=== PATIENT | female | born 1970 | race Hispanic/Latino ===

== ENCOUNTER 2022-03-18 20:13 | Emergency (ER) | payer OTHER ==
[~2022-03-18] VITALS: Ht 175.3 cm; Wt 115.2 kg
[2022-03-18 21:26] VITALS: BP 132/71
[2022-03-18] MEDS ORDERED: FLUORESCEIN SODIUM 1 STRIP STRIP ONE (22:26)
[2022-03-18] MEDS ORDERED: TETRACAINE HCL 0.5% 4 ML OPHTH SOLN ONE (22:26)
[2022-03-18] MEDS ORDERED: FLUORESCEIN SODIUM 1 STRIP STRIP OP ONE (22:30)
[2022-03-18] MEDS ORDERED: TETRACAINE HCL 0.5% 4 ML OPHTH SOLN OP ONE (22:30)
[2022-03-18] MEDS ORDERED: ACET-2079 PO (22:45)
[2022-03-18] MEDS ORDERED: BACI30OI6 TP (22:45)
[2022-03-18] MEDS ORDERED: DIPH25 PO (22:45)
[2022-03-18] MEDS ORDERED: DIPHENHYDRAMINE HCL 25 MG CAPSULE ONE (22:48)
[2022-03-18] MEDS ORDERED: ACETAMINOPHEN WITH CODEINE 1 TAB TAB ONE (22:49)
[2022-03-18] MEDS ORDERED: DIPHENHYDRAMINE HCL 25 MG CAPSULE PO ONE (23:00)
[2022-03-18] MEDS ORDERED: ACETAMINOPHEN WITH CODEINE 1 TAB TAB PO ONE (23:00)
== END 2022-03-18 23:02 | disposition home or self-care (01) ==
LOC: EDH 20:13
DX: B02.9 Zoster without complications (principal); E11.9 Type 2 diabetes mellitus without complications; I10 Essential (primary) hypertension; Z88.8 Allergy status to other drugs, medicaments and biological substances; Z79.899 Other long term (current) drug therapy
CPT/HCPCS: 99283; Q0163

== ENCOUNTER 2023-10-29 19:41 | Observation (INO) | payer OTHER ==
[~2023-10-29] VITALS: Ht 175.3 cm; Wt 112.5 kg
[~2023-10-29 19:41] MED LIST: ACET-2079 PO; BACI30OI6 TP; DIPH-1242 PO
[2023-10-29] MEDS ORDERED: IOHEXOL 350 MG/ML 100ML INFUS..BTL IV ONE (20:09)
[2023-10-29] MEDS ORDERED: DiphenhydrAMINE HCL 50 MG/ML VIAL ONE (20:10)
[2023-10-29] MEDS ORDERED: SOLU-MEDROL 125MG VIAL ONE (20:10)
[2023-10-29 20:19] LABS: BASOPHILS # (AUTO) 0.03 K/uL (0.00-0.20); BASOPHILS % (AUTO) 0.4 % (0.0-5.0); EOSINOPHILS # (AUTO) 0.08 K/uL (0.00-0.70); EOSINOPHILS % (AUTO) 1.1 % (0.0-8.0); HEMATOCRIT 46.8 % (36-48); IMMATURE GRANULOCYTE ABSOLUTE 0.03 K/uL (0-1); LYMPHOCYTES # (AUTO) 1.7 K/uL (1.0-4.8); LYMPHOCYTES % (AUTO) 22.3 % (21.0-51.0); MEAN CORPUSCULAR HEMOGLOBIN 30.2 pg (27.0-33.0); MEAN CORPUSCULAR HGB CONC 33.5 g/dL (32.0-36.0); MONOCYTES # (AUTO) 0.4 K/uL (0.1-1.0); MONOCYTES % (AUTO) 5.5 % (3.0-13.0); NEUTROPHILS # (AUTO) 5.3 K/uL (1.8-7.7); NEUTROPHILS % (AUTO) 70.3 % (40.0-77.0); PLATELET COUNT (AUTO) 288 K/uL (130-400); RED CELL DISTRIBUTION WIDTH 12.5 % (11.0-15.5); WHITE BLOOD COUNT (AUTO) 7.5 K/uL (4.8-10.8)
[2023-10-29] MEDS ORDERED: 0.9%NACL 1000ML 1,000 ML IV ONE (20:30)
[2023-10-29 20:34] LABS: CREATININE 0.8 mg/dL (0.5-1.5); POTASSIUM 3.6 mmol/L (3.5-5.1)
[2023-10-29 20:35] LABS: ALBUMIN 3.8 g/dL (3.5-5.0); BILIRUBIN,TOTAL 0.7 mg/dL (0.2-1.0); TOTAL PROTEIN, SERUM 8.3 g/dL (6.0-8.3)
[2023-10-29 20:37] LABS: INR 0.94 (0.85-1.15); PROTHROMBIN TIME 10.9 SEC (9.6-11.6)
[2023-10-29 20:38] LABS: PARTIAL THROMBOPLASTIN TIME 28.6 SEC (26.3-35.5)
[2023-10-29] MEDS ORDERED: 0.9%NACL 1000ML 1,000 ML IV SCH (22:30)
[2023-10-29] MEDS ORDERED: ONDANSETRON 4MG INJ IV PRN (22:30)
[2023-10-29] MEDS ORDERED: FAMOTIDINE 20MG VIAL IV SCH (22:33)
[2023-10-30] VITALS: O2SAT 99
[2023-10-30] MEDS: ACETAMINOPHEN 325 MG TAB PO PRN ×2 (01:47→14:43)
[2023-10-30 04:00] VITALS: BP 129/76; PULSE 76; RESP 17
[2023-10-30 05:51] LABS: BASOPHILS # (AUTO) 0.01 K/uL (0.00-0.20); BASOPHILS % (AUTO) 0.1 % (0.0-5.0); HEMATOCRIT 44.9 % (36-48); IMMATURE GRANULOCYTE ABSOLUTE 0.04 K/uL (0-1); LYMPHOCYTES # (AUTO) 0.9 K/uL (1.0-4.8); LYMPHOCYTES % (AUTO) 10.7 % (21.0-51.0); MEAN CORPUSCULAR HEMOGLOBIN 29.9 pg (27.0-33.0); MEAN CORPUSCULAR HGB CONC 33.9 g/dL (32.0-36.0); MEAN CORPUSCULAR VOLUME 88.4 fL (79-99); MONOCYTES % (AUTO) 0.5 % (3.0-13.0); NEUTROPHILS # (AUTO) 7.5 K/uL (1.8-7.7); NEUTROPHILS % (AUTO) 88.2 % (40.0-77.0); PLATELET COUNT (AUTO) 303 K/uL (130-400); RED BLOOD CELL COUNT(AUTO) 5.08 MIL/uL (4.00-5.50); RED CELL DISTRIBUTION WIDTH 12.4 % (11.0-15.5); WHITE BLOOD COUNT (AUTO) 8.5 K/uL (4.8-10.8)
[2023-10-30 06:09] LABS: ALBUMIN 3.5 g/dL (3.5-5.0); BILIRUBIN,TOTAL 0.6 mg/dL (0.2-1.0); CREATININE 0.9 mg/dL (0.5-1.5); MAGNESIUM 2.2 mg/dL (1.80-2.40); POTASSIUM 3.7 mmol/L (3.5-5.1); TOTAL PROTEIN, SERUM 8.1 g/dL (6.0-8.3)
[2023-10-30 06:17] LABS: HEMOGLOBIN A1C 5.7 % (4.0-6.0)
[2023-10-30 08:00] VITALS: O2SAT 99
[2023-10-30] MEDS ORDERED: FAMOTIDINE 20MG VIAL IV SCH (09:00)
[2023-10-30 10:45] LABS: THYROID STIMULATING HORMONE 0.32 uIU/mL (0.36-3.74)
[2023-10-30] MEDS ORDERED: ASPIRIN 81 MG EC TAB PO ONE (12:30)
[2023-10-30] MEDS ORDERED: ATOR10 PO (12:45)
[2023-10-30 16:00] VITALS: BP 141/72; PULSE 74; RESP 18
[2023-10-30] MEDS ORDERED: AEC81 PO (18:14)
[2023-10-30] MEDS ORDERED: CLOP-31 PO (18:14)
[2023-10-30] MEDS ORDERED: FAMO-136 PO (18:14)
[2023-10-30] MEDS ORDERED: ATORVASTATIN 20 MG TABLET PO SCH (21:00)
[2023-10-31] MEDS ORDERED: ASPIRIN 81 MG EC TAB PO SCH (09:00)
[2023-10-31] MEDS ORDERED: CLOPIDOGREL 75MG TAB PO SCH (09:00)
== END 2023-10-30 18:55 | disposition home or self-care (01) ==
LOC: EDH 19:41 → EDHIP 22:58 → INTOOBSV 22:58 → 3CH 22:59
PROVIDERS: ADMIT Internal Medicine; ATTEND Internal Medicine
DX: E11.65 Type 2 diabetes mellitus with hyperglycemia (principal); E66.01 Morbid (severe) obesity due to excess calories; G43.109 Migraine with aura, not intractable, without status migrainosus; G51.0 Bell's palsy; I63.9 Cerebral infarction, unspecified; R10.32 Left lower quadrant pain; R20.0 Anesthesia of skin; R25.3 Fasciculation; I10 Essential (primary) hypertension; Z68.36 Body mass index [BMI] 36.0-36.9, adult; Z88.8 Allergy status to other drugs, medicaments and biological substances; Z79.899 Other long term (current) drug therapy; Z79.82 Long term (current) use of aspirin
CPT/HCPCS: 96374; 96361; 99285; 84484; 80053 ×2; 85025 ×2; 85610; 85730; 82948 ×2; 36415 ×2; 71045; 70450; 70496; 70498; 93005; 96376; 83036; 84443; 83735; 80061; 84425; 82607; 93306; 93356; 70551; 97161; 97116; 92522; 92610; J1200; J3490 ×2; J7030; J2930; Q9967; G0378 ×9

== ENCOUNTER → 2024-06-18 | Outpatient (CLI) | payer OTHER ==
[~2024-06-18] MED LIST changes: -ACET-2079 PO; +AEC81 PO; +ATOR10 PO; -BACI30OI6 TP; +CLOP-31 PO; -DIPH-1242 PO; +FAMO-136 PO
[2024-06-18 22:27] VITALS: PULSE 72; RESP 18
[2024-06-18 23:00] VITALS: PULSE 68; RESP 18
[2024-06-18 23:30] VITALS: PULSE 60; RESP 18
[2024-06-19] VITALS (11 sets, daily range): PULSE 60–68; RESP 12–20
== END | disposition home or self-care (01) ==
LOC: SLP 20:28
PROVIDERS: ATTEND Internal Medicine Critical Care Medicine
DX: G47.33 Obstructive sleep apnea (adult) (pediatric) (principal)
CPT/HCPCS: 95810

== ENCOUNTER 2025-09-07 18:33 | Emergency (ER) | payer OTHER ==
[~2025-09-07] VITALS: Ht 175.3 cm; Wt 117.9 kg
--- NOTE | 2025-09-07 19:15 | ERN ---
ED Note History of Present Illness Stated Complaint: VISION ISSUES, HTN, HEADACHE Chief Complaint: Stroke Symptoms Time Seen by MD: 19:10 Dictation: PATIENT IS A 55-YEAR-OLD FEMALE HERE WITH HER WITH COMPLAINTS OF HAVING ACUTE ONSET OF BLURRED VISION APPROXIMATE 1 HOUR PRIOR TO ARRIVAL (APPROX 1800). 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 SHE SAID THEN THIS AFTERNOON SHE GOT UP AND SHE HAD TO USE THE RESTROOM WENT TO THE RESTROOM WHEN BACK TO BED WHEN SHE GOT UP AN HOUR AGO IS WHEN SHE NOTICED THAT SHE HAD THE BLURRED VISION SHE ALSO STATES HER BLOOD PRESSURE WAS ELEVATED, SHE STOPPED TAKING HER HCTZ FOUR MONTHS AGO THAT WAS PRESCRIBED TO HER BY HER PRIMARY CARE DOCTOR. PATIENT DOES WEAR CORRECTIVE LENSES. NIH IS 0, ALERT AND ORIENTED X4, SPEECH IS CLEAR. THERE WAS NO HEMIANOPSIA VISUAL HENRY ARE INTACT LAST KNOWN WELL TIME WAS 09:30 THIS MORNING WHEN PATIENT GOT UP TO USE THE RESTROOM. Allergies: Coded Allergies: iodine (Unverified Allergy, Severe, SWELLING OF THE THROAT, 03/18/22) Home Meds Active Scripts Famotidine (Pepcid) 20 Mg Tablet, 20 MG PO DAILY for 30 Days, #30 TAB [facility]23 Clopidogrel Bisulfate (Plavix) 75 Mg Tablet, 75 MG PO DAILY for 21 Days, #21 TAB Prov:FRANCIE SCRUGGS [facility] 10/30/23 Aspirin (ASPIRIN 81 MG ECTAB) 81 Mg Ectab, 81 MG PO DAILY for 30 Days, #30 TAB.EC Prov[facility] 10/30/23 Atorvastatin Calcium (LIPITOR) 20 Mg Tab, 20 MG PO HS for 30 Days, #30 TAB Prov[facility] 10/30/23 Past Medical History Past Medical History: Diabetes-Type II, Hypertension Surgical History: None Social History: Negative History: Not Applicable : 3 Para: 2 Aborts: 1 RN Note Reviewed/Agreed w/PFSH: Yes Review of System Dictation CONSTITUTIONAL: NEGATIVE EXCEPT FOR HPI HEAD/FACE: NEGATIVE EXCEPT FOR HPI EENT: NEGATIVE EXCEPT FOR HPI BLURRED VISION RESPIRATORY: NEGATIVE EXCEPT FOR HPI GASTROINTESTINAL/ABDOMINAL: NEGATIVE EXCEPT FOR HPI GENITOURINARY: NEGATIVE EXCEPT FOR HPI MUSCULOSKELETAL: NEGATIVE EXCEPT FOR HPI INTEGUMENTARY: NEGATIVE EXCEPT FOR HPI NEUROLOGICAL/PSYCH: NEGATIVE EXCEPT FOR HPI HEMATOLOGIC/LYMPHATIC: NEGATIVE EXCEPT FOR HPI ALL SYSTEMS NEGATIVE, EXCEPT NOTED ABOVE. 13 POINT REVIEW OF SYSTEMS ASSESSED AND ALL NEGATIVE EXCEPT FOR ABOVE. Initial Vital Sign VS Vital Signs Date Time Temp Pulse Resp B/P (MAP) Pulse Ox O2 Delivery O2 Flow Rate FiO2 09/07/25 19:03 97.7 79 20 168/101 99 Room Air 09/07/25 19:39 0 21 Physical Exam Dictation VITAL SIGNS REVIEWED GENERAL APPEARANCE: ALERT, ORIENTED X 3, NO ACUTE DISTRESS, WELL DEVELOPED, NOURISHED. HEAD AND FACE: NON-TRAUMATIC. EYES: PERRL, PINK CONJUNCTIVAS, EYELID NO TRAUMA, ANTERIOR CHAMBER WITH ARCUS SENILIS. EOMS INTACT, NO VISUAL FIELD CUTS EARS: PINNAS INTACT AND NO SIGNS OF TRAUMA OR ERYTHEMA EAR CANALS CLEAR AND NO DISCHARGE TM NO ERYTHEMA NOSE: NO DISCHARGE, NO BLEEDING. OROPHARYNX: MOUTH NORMAL, TONGUE PINK, PHARYNX CLEAR,NO ERYTHEMA, TONSILS NO EXUDATES, NO ABSCESSES NOTED, MUCOUS MEMBRANE MOIST NECK: SUPPLE, NON-TENDER, NO THYROMEGALY, NO MASSES, NO JVD, NO BRUITS BREAST:DEFERRED CHEST:NO TENDERNESS, NO CREPITUS, NO PARADOXICAL MOVEMENT, NO RETRACTIONS LUNGS:CLEAR, WELL-VENTILATED, SYMMETRIC, NO RALES, NO WHEEZING, NO RHONCHI, NO STRIDOR, GOOD BREATH SOUNDS BILATERALLY HEART: REGULAR RATE, REGULAR RHYTHM, NO MURMUR, NO GALLOPS VASCULAR: NO PERIPHERAL EDEMA, ABDOMEN: SOFT, POSITIVE BOWEL SOUNDS, NONDISTENDED, NO GUARDING, NONTENDER, NO REBOUND, NO MASSES NO HEPATOMEGALY, NO SPLENOMEGALY, NO MARIE'S SIGN, NO HERNIAS. RECTAL: DEFERRED GENITAL: DEFERRED NEUROLOGICAL: NORMAL SPEECH, MOTOR FUNCTION INTACT, SENSORY FUNCTION INTACT NIH IS 0 MUSCULOSKELETAL: NECK NONTENDER, FULL RANGE OF MOTION, BACK NONTENDER, FULL RANGE OF MOTION, EXTREMITIES: NONTENDER, FULL RANGE OF MOTION SKIN: COLOR PINK, DRY, NO TURGOR, NO RASH, NO LACERATIONS, NO ABRASIONS, NO CONTUSIONS. LYMPHATIC: DEFERRED Results (Laboratory/Radiology) Laboratory/Radiology Laboratory Tests Test 09/07/25 19:15 White Blood Count 7.1 K/uL (4.8-10.8) Red Blood Count 4.95 MIL/uL (4.00-5.50) Hemoglobin 15.0 g/dL (12.0-16.0) Hematocrit 44.4 % (36-48) Mean Corpuscular Volume 89.7 fL (79-99) Mean Corpuscular Hemoglobin 30.3 pg (27.0-33.0) Mean Corpuscular Hemoglobin Concent 33.8 g/dL (32.0-36.0) Red Cell Distribution Width 12.7 % (11.0-15.5) Platelet Count 226 K/uL (130-400) Mean Platelet Volume 11.3 fL (7.5-10.5) H Immature Granulocyte % (Auto) 0.3 % (0-1) Neutrophils (%) (Auto) 61.1 % (40.0-77.0) Lymphocytes (%) (Auto) 29.7 % (21.0-51.0) Monocytes (%) (Auto) 6.5 % (3.0-13.0) Eosinophils (%) (Auto) 2.0 % (0.0-8.0) Basophils (%) (Auto) 0.4 % (0.0-5.0) Neutrophils # (Auto) 4.3 K/uL (1.8-7.7) Lymphocytes # (Auto) 2.1 K/uL (1.0-4.8) Monocytes # (Auto) 0.5 K/uL (0.1-1.0) Eosinophils # (Auto) 0.14 K/uL (0.00-0.70) Basophils # (Auto) 0.03 K/uL (0.00-0.20) Absolute Immature Granulocyte (auto 0.02 K/uL (0-1) Nucleated Red Blood Cells 0.0 % (0.0-0.19) Sodium Level 141 mmol/L (136-145) Potassium Level 3.7 mmol/L (3.5-5.1) Chloride Level 105 mmol/L (101-111) Carbon Dioxide Level 28 mmol/L (21-32) Blood Urea Nitrogen 11 mg/dL (7-18) Creatinine 0.6 mg/dL (0.5-1.0) Glomerular Filtration Rate Calc 106 mL/min (>90) Random Glucose 98 mg/dL (70-105) Total Calcium 8.6 mg/dL (8.5-10.1) Magnesium Level 2.20 mg/dL (1.80-2.40) Troponin I High Sensitivity < 4 ng/L (4-50) L 2000/NO CT REPORT IN PACS. SPOKE WITH ALBERTA AT [facility] AND ASKED FOR AN EXPEDITED READING DUE TO STROKE ALERT. PATIENT REMAINS NEUROLOGICALLY INTACT. : 1970 SEX: F AGE: 55 LOCATION: [facility] ORDER 12 STATUS: REG ER REPORT#: [id number] SERVICE 09 REASON: BLURRED VISION APPROXIMATE 1 HOUR PRIOR TO ARRIVAL. ORDERING PHYSICIAN: BLADIMIR RILEY PROCEDURE: HEAD WO - CT HEAD/BRAIN W/O CONTRAST EXAM: CT Head Without IV contrast. CLINICAL HISTORY: BLURRED VISION APPROXIMATE 1 HOUR PRIOR TO ARRIVAL. TECHNIQUE: Axial computed tomography images of the head/brain without intravenous contrast. COMPARISON: None provided. FINDINGS: BRAIN: No evidence of acute hemorrhage. No mass lesion. No CT evidence for acute territorial infarct. No midline shift or extra-axial collections. VENTRICLES: No hydrocephalus. ORBITS: The orbits are unremarkable. SINUSES AND MASTOIDS: The paranasal sinuses and mastoid air cells are clear. BONES: No fracture. SOFT TISSUES: Unremarkable. IMPRESSION: No acute intracranial abnormality. Recommend evaluation with MRI brain if clinically warranted. /[place] Labs Reviewed?: Yes EKG: (+) NSR EKG Comment: EKG NORMAL SINUS RHYTHM/HEART RATE 74/AXIS NORMAL/NO ECTOPY ED Course ED Course Orders Procedure Category Date Status Time Visual Acuity Test CPOE 09/07/25 Transmitted (Er) 19:10 Ct Head/Brain W/O CT 09/07/25 Resulted Contrast 19:10 Cbc With Differential LAB 09/07/25 Complete 19:10 12 Lead Ekg Tracing- EKG 09/07/25 Complete Technical 19:10 Magnesium LAB 09/07/25 Complete 19:10 Troponin I High LAB 09/07/25 Complete Sensitivity 19:10 Urinalysis Profile LAB 09/07/25 Logged 19:10 Basic Metabolic Panel LAB 09/07/25 Complete 19:10 Lesage Prov. Neuro CONPHYSVC 09/07/25 Transmitted Consult 20:27 Vital Signs Date Time Temp Pulse Resp B/P (MAP) Pulse Ox O2 Delivery O2 Flow Rate FiO2 09/07/25 19:39 98.8 75 18 140/75 99 Room Air* 0 21 09/07/25 19:03 97.7 79 20 168/101 99 Room Air 1957/SPOKE WITH ALBERTA AT [facility] AND REQUESTED AN EXPEDITED CT READ ON STROKE ALERT. 2023/CT RESULTS NEGATIVE WE WILL FOLLOW WITH THE SOC/NEUROLOGIST. 2039/SPOKE WITH DR. SEBASTIAN EASTON/NEUROLOGISTS. HE HAD CT IN HIS FINDINGS. HE IS LEANING MORE TOWARD A MIGRAINE HEADACHE STRONGLY SUGGESTED THAT WE PERFORM CT ANGIOGRAPHY. IF THERE IS NO CHANGES THERE HE SUGGEST TREATED FOR MIGRAINE HEADACHE AND OKAY TO DISCHARGE HER HOME NORMAL FINDINGS CALLED HIM AND HE WOULD RECOMMEND AN MRI AT THAT POINT. 2039/VISUAL ACUITY CHECKED BY RN 20/20 RIGHT 20/20 LEFT 20/20 BOTH CORRECTED SPOKE TO PATIENT AND HER AT LENGTH REGARDING RECOMMENDATIONS TO TRANSFER TO A HIGHER LEVEL OF CARE FOR CT ANGIOGRAM AND POSSIBLE MRI AND NEUROLOGIC MA NAGEMENT. PATIENT STATES HER SYMPTOMS HAVE RESOLVED SHE ONLY HAS A MILD FRONTAL HEADACHE. NIH IS 0 AND VISION IS INTACT WITH CORRECTIVE LENSES. SHE AND HER DO NOT WANT TO BE TRANSFERRED TO A HIGHER LEVEL OF CARE AND AGREED THAT THEY WE WILL BE DISCHARGED AGAINST MEDICAL ADVICE WE WILL RETURNED TO THE HOSPITAL IMMEDIATELY IF ANY ACUTE CHANGES. I ADVISED BOTH IT WITHOUT ADDITIONAL TESTING THAT THE ETIOLOGY FOR VISION CHANGES THIS AFTERNOON COULD NOT BE DISCERNED HOWEVER, THEY BOTH AGREED THEY WANT TO GO HOME. HEART Score Response (Comments) Value History: Low suspicion (0) 0 Age: 45-65yrs (+1) 1 Risk Factors: 1-2 risk factors (+1) 1 Initial Troponin: Normal limit (0) 0 Total 2 Medical Decision Making MDM MDM: DIFFERENTIAL DIAGNOSIS: VISION CHANGES/CVA/ACUTE BLEED/ELECTROLYTE IMBALA NCE/DEHYDRATION/ANXIETY/MIGRAINE HEADACHE ARRHYTHMIA RATIONALE: TESTS CONSIDERED AND ORDERED SECONDARY TO SHARED DECISION MAKING INCLUDE: EKG/LABS/RADIOLOGY PREVIOUS OUTSIDE RECORDS REVIEWED: OLD ER VISITS. RISK OF COMPLICATION AND/OR MORBIDITY OR MORTALITY OF PATIENT MANAGEMENT: NONE MEDICATIONS-PER MEDICATION RECONCILIATION NEED FOR HOSPITALIZATION: PATIENT DOES NOT MEET CRITERIA FOR HOSPITALIZATION. REFUSED TRANSFER AND SIGNED OUT AGAINST MEDICAL ADVICE. NEED FOR EMERGENCY MAJOR/MINOR SURGERY: NO THERE ARE NO SOCIAL CONCERNS WITH THIS PATIENT. PRESCRIPTION DRUG MANAGEMENT PATIENT STATES SHE HAS A HCTZ AT HOME AND WE WILL RESUME USE TONIGHT PRESCRIPTIONS WILL INCLUDE SYMPTOMATIC CARE PATIENT'S PRIOR EXTERNAL MEDICAL RECORDS FROM OTHER ER VISITS WERE REVIEWED BY ME INDICATED. PRIOR TESTING AND RESULTS FROM PREVIOUS VISITS WERE REVIEWED. PRIOR TESTS WERE TAKEN INTO ACCOUNT WITH MEDICAL DECISION MAKING AND RESOURCE UTILIZATION, INDEPENDENT HISTORIAN/HISTORIANS WERE USED TO OBTAIN COMPLETE MEDICAL HISTORY. I INDEPENDENTLY INTERPRETED THE TEST THAT WERE PERFORMED, RESULTS WERE REVIEWED BY ME AND CONSIDERED FINDINGS ON RADIOLOGY IF ORDERED. MEDICAL MANAGEMENT AND EXAMINATION INTERPRETATION DISCUSSIONS WERE HAD BY ME WITH OTHER QUALIFIED HEALTHCARE PROFESSIONALS INDICATED FOR THE PATIENT'S CARE. DX & DISP Disposition: AMA Departure Impression: Primary Impression: Vision changes Additional Impressions: Hypertension, Medically noncompliant, Obese Condition: Stable Referrals: SELF,REFERRAL (PCP) Time of Disposition: 20:58 I have reviewed the case, and I agree with, Diagnosis and Plan BLADIMIR RILEYP Sep 07, 2025 19:15
--- NOTE | 2025-09-07 19:39 | EKG ---
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
[2025-09-07 19:44] LABS: IMMATURE GRANULOCYTE ABSOLUTE 0.02 K/uL (0-1); NUCLEATED RED BLOOD CELLS 0.0 % (0.0-0.19); PLATELET COUNT (AUTO) 226 K/uL (130-400); RED BLOOD CELL COUNT(AUTO) 4.95 MIL/uL (4.00-5.50); RED CELL DISTRIBUTION WIDTH 12.7 % (11.0-15.5); WHITE BLOOD COUNT (AUTO) 7.1 K/uL (4.8-10.8)
[2025-09-07 19:54] LABS: CREATININE 0.6 mg/dL (0.5-1.0); GLOMERULAR FILTR. RATE CALC 106.0 mL/min (>90); GLUCOSE,RANDOM 98.0 mg/dL (70-105); SODIUM SERUM 141.0 mmol/L (136-145); UREA NITROGEN, BLOOD 11.0 mg/dL (7-18)
--- NOTE | 2025-09-07 20:19 | HMCIMG ---
EXAM: CT Head Without IV contrast. CLINICAL HISTORY: BLURRED VISION APPROXIMATE 1 HOUR PRIOR TO ARRIVAL. TECHNIQUE: Axial computed tomography images of the head/brain without intravenous contrast. COMPARISON: None provided. FINDINGS: BRAIN: No evidence of acute hemorrhage. No mass lesion. No CT evidence for acute territorial infarct. No midline shift or extra-axial collections. VENTRICLES: No hydrocephalus. ORBITS: The orbits are unremarkable. SINUSES AND MASTOIDS: The paranasal sinuses and mastoid air cells are clear. BONES: No fracture. SOFT TISSUES: Unremarkable. IMPRESSION: No acute intracranial abnormality. Recommend evaluation with MRI brain if clinically warranted. /[place]
[2025-09-07 22:17] VITALS: BP 135/66; PULSE 78; RESP 18; TEMP 98.7; O2SAT 99
== END 2025-09-07 22:20 | disposition left against medical advice (07) ==
LOC: EDH 18:33
DX: H53.8 Other visual disturbances (principal); I10 Essential (primary) hypertension; E66.9 Obesity, unspecified; E11.9 Type 2 diabetes mellitus without complications; Z91.199 Patient's noncompliance with other medical treatment and regimen due to unspecified reason; Z91.041 Radiographic dye allergy status; Z79.82 Long term (current) use of aspirin; Z79.02 Long term (current) use of antithrombotics/antiplatelets; Z68.38 Body mass index [BMI] 38.0-38.9, adult
CPT/HCPCS: 36415; 70450; 80048; 83735; 84484; 85025; 93005; 99284

== ENCOUNTER 2025-09-13 04:19 | Emergency (ER) | payer OTHER ==
[~2025-09-13] VITALS: Ht 175.3 cm; Wt 118.8 kg
--- NOTE | 2025-09-13 04:41 | ERN ---
General Chief Complaint: Dizzy/Light Headed Stated Complaint: C/O DIZZINESS, ABD PAIN, N X V, RT SHOULDER PAIN Time Seen by MD: 04:22 History of Present Illness Initial Comments 55-year-old female history of hypertension, hyperlipidemia, diabetes mellitus who presents to emergency room with the for evaluation of nausea, vomiting, diarrhea, generalized weakness. Symptoms started around 12 midnight today. States that she had one a burger and afterwards felt sick. When asked about how long/how many episodes of vomiting/diarrhea she had. She states that she was on the toilet for about 1 hour. No chest pain. Complaining of epigastric pain that radiates to her back. Allergies: Coded Allergies: iodine (Unverified Allergy, Severe, SWELLING OF THE THROAT, 03/18/22) Home Meds Active Scripts Famotidine (Pepcid) 20 Mg Tablet, 20 MG PO DAILY for 30 Days, #30 TAB Prov:FRANCIE SCRUGGS [facility] 10/30/23 Clopidogrel Bisulfate (Plavix) 75 Mg Tablet, 75 MG PO DAILY for 21 Days, #21 TAB Prov:FRANCIE SCRUGGS [facility] 10/30/23 Aspirin (ASPIRIN 81 MG ECTAB) 81 Mg Ectab, 81 MG PO DAILY for 30 Days, #30 TAB.EC Prov:FRANCIE SCRUGGS [facility] 10/30/23 Atorvastatin Calcium (LIPITOR) 20 Mg Tab, 20 MG PO HS for 30 Days, #30 TAB Prov:FRANCIE SCRUGGS [facility] 10/30/23 Past Medical History Past Medical History: Diabetes-Type II, High Cholesterol, Hypertension Past Surgical History: None Social History Social History: Negative Female( History) History: Not Applicable : 3 Para: 2 Aborts: 1 Gastrointestinal/Abdominal: (+) nausea, (+) vomiting, (+) diarrhea, (+) abdominal pain Review of Systems: was completed, & the rest were negative. Physical Exam General Appearance: (+) no apparent distress Orientation: (+) alert, (+) oriented x 3 Eye: bilateral eye normal inspection, bilateral eye PERRL Ear, Nose, Throat: (+) hearing grossly normal, (+) moist mucous membraine, (+) normal pharynx Neck: (+) normal inspection, (+) supple Respiratory: (+) chest non-tender, (+) lungs clear Heart: (+) regular; (-) murmur Gastrointestinal: (+) soft, (+) tender (Epigastric region) Back: (+) normal inspection, (+) no CVA tenderness Extremities: (+) normal range of motion, (+) non-tender Results Laboratory and Microbiology Lab and Micro Result Laboratory Tests Test 09/13/25 04:27 09/13/25 04:49 Urine Color YELLOW (YELLOW) Urine Appearance CLEAR (CLEAR) Urine pH 6.0 (5.0-8.0) Urine Specific [place] 1.025 (1.001-1.031) Urine Protein 30 mg/dL (NEGATIVE) H Urine Glucose (UA) NEGATIVE mg/dL (NEGATIVE) Urine Ketones NEGATIVE mg/dL (NEGATIVE) Urine Occult Blood SMALL (NEGATIVE) H Urine Nitrate NEGATIVE (NEGATIVE) Urine Bilirubin NEGATIVE mg/dL (NEGATIVE) Urine Urobilinogen 1.0 mg/dL (0.2-1.0) Urine Leukocyte Esterase NEGATIVE Sary/uL Urine RBC None /HPF (0-1) Urine WBC 2-5 /HPF (0-1) H Urine Squamous Epithelial Cells FEW /HPF (0-2) Urine Calcium Oxalate Crystals MANY /LPF (None Seen) Urine Other Crystals (Auto) 9 /HPF (None Seen) Urine Bacteria None /HPF (None Seen) White Blood Count 8.1 K/uL (4.8-10.8) Red Blood Count 5.07 MIL/uL (4.00-5.50) Hemoglobin 15.5 g/dL (12.0-16.0) Hematocrit 46.1 % (36-48) Mean Corpuscular Volume 90.9 fL (79-99) Mean Corpuscular Hemoglobin 30.6 pg (27.0-33.0) Mean Corpuscular Hemoglobin Concent 33.6 g/dL (32.0-36.0) Red Cell Distribution Width 12.6 % (11.0-15.5) Platelet Count 227 K/uL (130-400) Mean Platelet Volume 10.9 fL (7.5-10.5) H Immature Granulocyte % (Auto) 0.6 % (0-1) Neutrophils (%) (Auto) 67.1 % (40.0-77.0) Lymphocytes (%) (Auto) 25.8 % (21.0-51.0) Monocytes (%) (Auto) 4.7 % (3.0-13.0) Eosinophils (%) (Auto) 1.4 % (0.0-8.0) Basophils (%) (Auto) 0.4 % (0.0-5.0) Neutrophils # (Auto) 5.4 K/uL (1.8-7.7) Lymphocytes # (Auto) 2.1 K/uL (1.0-4.8) Monocytes # (Auto) 0.4 K/uL (0.1-1.0) Eosinophils # (Auto) 0.11 K/uL (0.00-0.70) Basophils # (Auto) 0.03 K/uL (0.00-0.20) Absolute Immature Granulocyte (auto 0.05 K/uL (0-1) Nucleated Red Blood Cells 0.0 % (0.0-0.19) Sodium Level 142 mmol/L (136-145) Potassium Level 3.4 mmol/L (3.5-5.1) L Chloride Level 106 mmol/L (101-111) Carbon Dioxide Level 26 mmol/L (21-32) Blood Urea Nitrogen 10 mg/dL (7-18) Creatinine 0.7 mg/dL (0.5-1.0) Glomerular Filtration Rate Calc 102 mL/min (>90) Random Glucose 114 mg/dL (70-105) H Total Calcium 8.4 mg/dL (8.5-10.1) L Troponin I High Sensitivity < 4 ng/L (4-50) L Lipase 27 U/L (16-77) EKG/XRAY/US/CT/MRI EKG: (+) NSR EKG Comment EKG read by me shows a normal sinus rhythm with a rate of 75, GA 147, QRS 88, no STEMI. MDM 55-year-old female with likely gastroenteritis from whataburger. We will get basic labs and do cardiac workup due to dizziness. Disposition pending results of labs. ED Course Orders Procedure Category Date Status Time Cbc With Differential LAB 09/13/25 Complete 04:22 Basic Metabolic Panel LAB 09/13/25 Complete 04:22 Troponin I High LAB 09/13/25 Complete Sensitivity 04:22 Urinalysis Profile LAB 09/13/25 Complete 04:22 12 Lead Ekg Tracing- EKG 09/13/25 Complete Technical 04:22 Dicyclomine Hcl PHA 09/13/25 Complete (Bentyl 20mg Tab) 05:00 Ondansetron 4mg Inj PHA 09/13/25 Complete (Zofran 4mg Inj) 05:00 0.9%Nacl 1000ml (Ns PHA 09/13/25 In Process 1000ml) 05:00 Lipase LAB 09/13/25 Complete 04:49 Potassium Chloride PHA 09/13/25 Complete 20meq Er (K-Dur/Klor- 05:30 Current Medications Medications (Trade) Dose Ordered Sig/Tj Route PRN Reason Start Time Stop Time Status Last Admin Dose Admin Dicyclomine HCl (Bentyl 20mg Tab) 20 mg ONCE ONCE PO 09/13/25 05:00 09/13/25 05:01 DC 09/13/25 05:04 Ondansetron HCl (zoFRAN 4MG INJ) 4 mg ONCE ONCE IVP 09/13/25 05:00 09/13/25 05:01 DC 09/13/25 05:05 Potassium Chloride (K-Dur/Klor-Con 20meq) 40 meq ONCE ONCE PO 09/13/25 05:30 09/13/25 05:31 DC 09/13/25 05:22 Sodium Chloride 1,000 ml @ 0 mls/hr Q0M IV 09/13/25 05:00 10/13/25 04:59 09/13/25 05:06 Vital Signs Date Time Temp Pulse Resp B/P (MAP) Pulse Ox O2 Delivery O2 Flow Rate FiO2 09/13/25 05:26 76 16 144/82 98 Room Air* 0 21 09/13/25 04:53 97.7 76 12 157/89 100 Room Air* 0 21 09/13/25 04:21 97.7 76 20 147/93 96 Room Air 6:07 a.m.: Reviewed labs and imaging with the patient. Reassuring at this time. We will discharge home. Vital signs stable. Feels much better. Advised on concerning signs and symptoms for which to return to the emergency room. We will discharge home on Zofran. Counseled to follow up with the PCP. All questions answered at this time. DX & DISP Disposition: Discharge Departure Impression: Primary Impression: Gastroenteritis Additional Impression: Hypokalemia due to excessive gastrointestinal loss of potassium Condition: Stable Scripts Ondansetron (Ondansetron Odt) 4 Mg Tab.rapdis 4 MG PO TIDP PRN for NAUSEA for 7 Days, #21 TAB Prov: JEAN PIERRE DENNIS MD 09/13/25 Referrals: SELF,REFERRAL (PCP) JEAN PIERRE DENNIS MD Sep 13, 2025 04:41
--- NOTE | 2025-09-13 04:41 | EKG ---
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
[2025-09-13 04:48] LABS: ADD UA MICROSCOPIC YES; APPEARANCE,URINE CLEAR (CLEAR); GLUCOSE, URINE (UA) NEGATIVE (NEGATIVE); LEUKOCYTE ESTERASE ,URINE NEGATIVE Leu/uL (NEGATIVE); NITRATE,URINE NEGATIVE (NEGATIVE); OCCULT BLOOD,URINE SMALL (NEGATIVE)
[2025-09-13 04:54] LABS: CALCIUM OXALATE CRYSTALS,UR MANY /LPF (None Seen); SQUAMOUS EPITHELIAL CELL,UR FEW /HPF (0-2); UNCLASSIFIED CRYSTAL 9 /HPF (None Seen)
[2025-09-13 05:01] LABS: IMMATURE GRANULOCYTE ABSOLUTE 0.05 K/uL (0-1); NUCLEATED RED BLOOD CELLS 0.0 % (0.0-0.19); PLATELET COUNT (AUTO) 227 K/uL (130-400); RED BLOOD CELL COUNT(AUTO) 5.07 MIL/uL (4.00-5.50); RED CELL DISTRIBUTION WIDTH 12.6 % (11.0-15.5); WHITE BLOOD COUNT (AUTO) 8.1 K/uL (4.8-10.8)
[2025-09-13] MEDS: DICYCLOMINE HCL 20 MG TAB PO ONE (05:04)
[2025-09-13] MEDS: 0.9%NACL 1000ML 1,000 ML IV SCH (05:06)
[2025-09-13 05:09] LABS: CREATININE 0.7 mg/dL (0.5-1.0); GLOMERULAR FILTR. RATE CALC 102.0 mL/min (>90); GLUCOSE,RANDOM 114.0 mg/dL (70-105); SODIUM SERUM 142.0 mmol/L (136-145); UREA NITROGEN, BLOOD 10.0 mg/dL (7-18)
[2025-09-13] MEDS: PoTASSium chloRIDE 20MEQ ER 20 MEQ ERTAB PO ONE (05:22)
[2025-09-13] MEDS ORDERED: ONDA-243 PO (06:07)
[2025-09-13 06:13] VITALS: BP 154/74; PULSE 70; RESP 16; TEMP 97.7; O2SAT 98
== END 2025-09-13 06:23 | disposition home or self-care (01) ==
LOC: EDH 04:19
DX: K52.9 Noninfective gastroenteritis and colitis, unspecified (principal); E87.6 Hypokalemia; E11.9 Type 2 diabetes mellitus without complications; E78.00 Pure hypercholesterolemia, unspecified; I10 Essential (primary) hypertension; Z79.02 Long term (current) use of antithrombotics/antiplatelets; Z79.82 Long term (current) use of aspirin; Z88.8 Allergy status to other drugs, medicaments and biological substances; Z79.899 Other long term (current) drug therapy
CPT/HCPCS: 99284; 96374; 96361; 84484; 80048; 83690; 85025; 81001; 36415; 93005; J7030; J2405